=== PATIENT | male | born 1965 | race African-American/Black ===

== ENCOUNTER 2018-12-09 10:36 | Emergency (ER) | payer MEDICAID ==
[~2018-12-09] VITALS: Ht 172.7 cm; Wt 80.3 kg
[2018-12-09 10:40] VITALS: Ht 172.7 cm; Wt 80.3 kg
[2018-12-09 11:28] LABS: CALCIUM 8.4 mg/dL (8.5-10.1); CARBON DIOXIDE 23.7 mmol/L (21-32); CHLORIDE SERUM 101 mmol/L (98-107); CREATININE SERUM 1.2 mg/dL (0.7-1.3); GFR1 > 60 mL/min; GLUCOSE SERUM 98 mg/dL (74-106); POTASSIUM SERUM 3.8 mmol/L (3.5-5.1); SODIUM SERUM 138 mmol/L (136-145)
[2018-12-09 11:32] LABS: ALBUMIN 3.5 g/dL (3.4-5.0); ALKALINE PHOSPHATASE 77 U/L (46-116); ALT/SGPT 21 U/L (16-63); AST/SGOT 11 U/L (15-37); BILIRUBIN TOTAL 0.6 mg/dL (0.20-1.00); LIPASE 66 IU/L (73-393); TOTAL PROTEIN, SERUM 7.7 g/dL (6.4-8.2)
[2018-12-09 11:33] LABS: BASOPHIL % 0.3 % (0-2); PLATELET COUNT 309 x10^3mcL (130-400)
[2018-12-09 17:30] VITALS: BP 166/103
== END 2018-12-09 17:30 | disposition home or self-care (01) ==
LOC: ED 10:36
PROVIDERS: Student in an Organized Health Care Education/Training Program
DX: R10.31 Right lower quadrant pain (principal); R19.7 Diarrhea, unspecified; R11.2 Nausea with vomiting, unspecified; F17.210 Nicotine dependence, cigarettes, uncomplicated
CPT/HCPCS: J2270; J2405; J7030; Q0092; Q9967

== ENCOUNTER 2019-09-17 16:29 | Emergency (ER) | payer SELFPAY ==
[~2019-09-17] VITALS: Ht 172.7 cm; Wt 80.3 kg
[2019-09-17 16:42] VITALS: Ht 172.7 cm; Wt 80.3 kg
[2019-09-17 19:24] VITALS: BP 135/98
== END 2019-09-17 19:24 | disposition home or self-care (01) ==
LOC: ED 16:29
DX: S92.422A Displaced fracture of distal phalanx of left great toe, initial encounter for closed fracture (principal); I10 Essential (primary) hypertension; F17.210 Nicotine dependence, cigarettes, uncomplicated; W20.8XXA Other cause of strike by thrown, projected or falling object, initial encounter; Y93.89 Activity, other specified; Y92.89 Other specified places as the place of occurrence of the external cause; Y99.8 Other external cause status
CPT/HCPCS: 90715; J1885; J2001; Q0092